=== PATIENT | female | born 1995 | race Caucasian/White ===

== ENCOUNTER 2019-09-01 05:57 | Inpatient (IN) ==
[2019-09-01] MEDS ORDERED: OXYTOCIN/DEXTROSE 5%-WATER 30 UNITS/500 ML BAG IV ONE (07:38)
[2019-09-01] MEDS ORDERED: RINGER'S SOLUTION,LACTATED 1,000 ML IV ONE (08:47)
[2019-09-01] MEDS ORDERED: LIDOCAINE HCL 50 ML VIAL PERI PRN (08:47)
[2019-09-01] MEDS ORDERED: ONDANSETRON 4 MG TAB.RAPDIS PO PRN (08:47)
[2019-09-01] MEDS ORDERED: BUTORPHANOL TARTRATE 2 MG/ML VIAL IV PRN ×2 (08:47)
[2019-09-01] MEDS ORDERED: RINGER'S SOLUTION,LACTATED 1,000 ML IV PRN (08:47)
--- NOTE | 2019-09-01 08:47 | HP ---
Chief Complaint - Chief Complaint Date of Service: 09/01/19 Time of Service: 08:43 Chief Complaint: Labor induction History of Present Illness: 24 year old at 39w 0d who presents to L&D for an elective IOL. She denies vb or lof. Reports irregular ctx. Fetus is active. Medical History (Last Reviewed 09/01/19 @ 08:44 by Juana Bowser MD) Anxiety Onset Date: Unknown Hyperthyroidism Onset Date: ~12/2017 Surgical History: Surgical History (Last Reviewed 09/01/19 @ 08:44 by Juana Bowser MD) No history of previous surgery Family History: Family History (Last Reviewed 09/01/19 @ 08:44 by Juana Bowser MD) Mother Diabetes DMII Hypertension Father Unknown family medical history Grandmother Cancer, Onset Age: 50 maternal grandmother-breast ca Social History: (Last Reviewed 09/01/19 @ 08:44 by Juana Bowser MD) Social History: Marital status: Legally household members: family current occupational status: unemployed current occupational exposures/hazards: No Service: No Tobacco: Smoking Status: Current every day smoker tobacco type: cigarettes Smoking cigarettes per day: 20.0 Smoking packs per day: 1 Alcohol: alcohol intake: former details: none since +UPT Substance Use: substance use type: marijuana Dietary Habits: caffeine: Yes caffeine comment: twice weekly Type: carbonated beverages Review Of Systems (GEN) - Review of Systems Generalized/Overall Review: Present: No Symptoms Reported Misc: All systems neg except as marked Immunizations: IMMUNIZATION HX History of Influenza Vaccine No Hx Pneumococcal Vaccination No Allergies/Adverse Reactions: Allergies Allergy/AdvReac Type Severity Reaction Status Date / Time latex Allergy Other Verified 09/01/19 02:11 Home Medications: HOME MEDICATIONS vitamins no.119-iron fumarate 29 mg-folic acid 1 mg tablet 1 tab PO DAILY #30 tab 05/23/19 [Last Taken Unknown] ferrous sulfate 325 mg (65 mg iron) tablet 325 mg PO DAILY 07/26/19 [Last Taken Unknown] Exam - Exam Constitutional: Present: Alert, Oriented x3, Cooperative, No distress ENT Exam: Present: hearing grossly normal Eye Exam: bilateral eye: normal inspection Back Exam: Present: normal inspection Breasts: Present: Exam deferred Respiratory: Present: lungs clear, normal breath sounds Cardiovascular/Chest: Present: regular rate, rhythm Abdomen: Present: Normal bowel sounds, soft, nontender, nondistended, no rebound tenderness /Rectal: Present: Other - /-1 AROM for clear fluid followed by bloody show Extremity: Present: non-tender, no calf tenderness Skin Exam: Present: normal color, warm/dry, no cyanosis Neurologic: Present: alert, normal mood/affect, oriented x 3 Appearance: Present: appropriate appearance, appropriate insight, neat, no memory impairment Eye contact: Present: cooperative, good eye contact, normal speech Thoughts: Present: normal thought pattern Assessment/Plan - Narrative Narrative: 24 year old at 39w 0d 1. Medical IOL: pitocin for labor induction. AROM done for augmentation 2. GBS negative: prophylaxis not indicated
[2019-09-01 09:45] LABS: Cocaine Ur Negative (NEGATIVE); Urine Barbiturate Negative (NEGATIVE); Urine Benzodiazepines Negative (NEGATIVE); Urine Opiates Negative (NEGATIVE); Urine PCP Negative (NEGATIVE); Urine THC Negative (NEGATIVE)
[2019-09-01] MEDS ORDERED: ONDANSETRON HCL/PF 2 MG/ML VIAL IV PRN (14:25)
[2019-09-01] MEDS ORDERED: NALOXONE HCL 1 MG/1 ML SYRG IV PRN (14:25)
[2019-09-01] MEDS ORDERED: BUPIVACAINE HCL/PF 30 ML VIAL EP SCH (14:30)
[2019-09-01] MEDS ORDERED: BUPIVACAINE HCL/0.9 % NACL/PF 250 ML EP PRN (14:30)
--- NOTE | 2019-09-01 14:47 | ANES ---
Anesthesia Pre Procedure Eval Vitals/Labs: Last Vital Signs Temp 36.6 C 09/01/19 06:00 Pulse 96 09/01/19 06:00 Resp 16 09/01/19 06:00 BP 124/66 09/01/19 06:00 Pulse Ox 97 09/01/19 06:00 HOME MEDICATIONS vitamins no.119-iron fumarate 29 mg-folic acid 1 mg tablet 1 tab PO DAILY #30 tab 05/23/19 [Last Taken Unknown] ferrous sulfate 325 mg (65 mg iron) tablet 325 mg PO DAILY 07/26/19 [Last Taken Unknown] Allergies/Adverse Reactions: Allergies Allergy/AdvReac Type Severity Reaction Status Date / Time latex Allergy Other Verified 09/01/19 02:11 - Planned Procedure Planned Procedure: Labor epidural Medication List Reviewed:: Yes Allergies Verified: Yes Medical History (Last Reviewed 09/01/19 @ 14:47 by Ok Kent CRNA) Anxiety Onset Date: Unknown Hyperthyroidism Onset Date: ~12/2017 Surgical History (Last Reviewed 09/01/19 @ 14:47 by Ok Kent CRNA) No history of previous surgery Family History (Last Reviewed 09/01/19 @ 14:47 by Ok Kent CRNA) Mother Diabetes DMII Hypertension Father Unknown family medical history Grandmother Cancer, Onset Age: 50 maternal grandmother-breast ca - Cardiovascular Tolerate Activity: Good - Anesthesia Assessment and Plan ASA Class: PS, II Anesthesia Type Plan: Epidural
--- NOTE | 2019-09-01 15:08 | ANES ---
Anesthesia Procedure Note Procedure Note: ANESTHESIA PROCEDURE NOTE Date of Procedure: 09/01/2019. Time of procedure: 1445. Performed by: Ok Kent CRNA Sew On Operator: None. Preprocedure diagnosis: Active labor. Post procedure diagnosis: Same. Procedure: Insertion of labor epidural. Indications: The patient is a 24-year-old female in active labor requesting labor epidural for pain management. Findings: See below. Details of the procedure: The patient was placed in a sitting position. DuraPrep as well as Betadine swabs X3 was applied to the patient's back. Patient was then draped in a sterile fashion. Lidocaine 1% was infiltrated to the skin and subcutaneous tissues at the level of the L3-4 interspace. The epidural space was identified using a 18-gauge Tuohy needle with [id number] technique. Epidural catheter was inserted to a depth of 12 centimeters at skin. Negative test dose was elicited using 3 mL of 1.5% preservative-free lidocaine plus epinephrine 1 200,000. The epidural catheter was then taped and secured in place. A loading dose of 8 mL of 0.25% preservative-free bupivacaine was administered to the epidural catheter after negative aspiration for blood and CSF. EBL: Minimal. Fluids: N/A. Specimen: N/A. Post procedure condition: The patient tolerated the procedure well. No complications were noted. Thank you for this consultation. Ok Kent CRNA
--- NOTE | 2019-09-01 15:08 | ANES ---
Post Anesthesia Assessment - Vital Signs Vitals: Last Vital Signs Temp 36.6 C 09/01/19 06:00 Pulse 96 09/01/19 06:00 Resp 16 09/01/19 06:00 BP 124/66 09/01/19 06:00 Pulse Ox 97 09/01/19 06:00 Airway Patency: Normal - Mental Status Level Of Consciousness: Awake - N/V Assessment Nausea/Vomiting Presence: None Dehydration:: No
[2019-09-01] MEDS: RINGER'S SOLUTION,LACTATED 1,000 ML IV PRN ×2 (15:16→23:45)
[2019-09-01] MEDS ORDERED: PENICILLIN G POTASSIUM 5 MILLIONUNT in DEXTROSE 5 % IN WATER 100 ML IV ONE ×4 (22:00→22:45)
[2019-09-02] MEDS ORDERED: HYDROCORTISONE 30 APPL TUBE TP PRN (00:35)
[2019-09-02] MEDS ORDERED: GLYCERIN/WITCH HAZEL LEAF 40 APPL BOX TP PRN (00:35)
[2019-09-02] MEDS ORDERED: HYDROcodone/ACETAMINOPHEN 1 EACH TABLET PO PRN (00:35)
[2019-09-02] MEDS ORDERED: SENNOSIDES 8.6 MG TABLET PO PRN (00:35)
[2019-09-02] MEDS ORDERED: OXYTOCIN/DEXTROSE 5%-WATER 30 UNITS/500 ML BAG IV ONE (00:35)
[2019-09-02] MEDS ORDERED: BENZOCAINE/MENTHOL 81 SPRAY CAN TP PRN (00:35)
[2019-09-02] MEDS ORDERED: BISACODYL 10 MG SUPP.RECT RC PRN (00:35)
[2019-09-02] MEDS ORDERED: diphenhydrAMINE HCL 25 MG CAPSULE PO PRN (00:35)
--- NOTE | 2019-09-02 00:35 | OR ---
Operative Report - Dictated Report Narrative: Date of delivery: 09/02/2019 Time of delivery: 0017 Gender: female APGARS: 99 weight: 3130 grams Procedure: Description of the procedure: The patient is a 24 year old not as previously stated in the chart although the history is questionable. She presented to L&D for an elective IOL at 39 weeks 0 days. She progressed to complete dilation. She delivered a viable female in direct OA presentation over a 1st degree perineal laceration. There was no bleeding and thus the perineal laceration was not repaired. The shoulders delivered without any difficulty followed by the rest of the . Cord clamping was delayed for 60 seconds due to vigorous . The cord was clamped and cut. Cord blood was collected The placenta delivered by expression and appeared intact. EBL: 200 mL Complications: none Specimens: cord blood and cord segment for drug screen due to history of THC use during the History for MU Definition: * The number of deliveries resulting in a live the patient experienced prior to current hospitalization * The previous delivery of live twins or any live multiple gestation is considered one live event. *If primagravida or nulliparous is documented select zero for the number of previous live births. Live Events: 0
[2019-09-02] MEDS: IBUPROFEN 800 MG TABLET PO PRN ×4 (02:15→23:45)
[2019-09-02] MEDS: HYDROcodone/ACETAMINOPHEN 1 EACH TABLET PO PRN ×4 (02:16→23:45)
[2019-09-02] MEDS: DOCUSATE SODIUM 100 MG CAPSULE PO SCH ×2 (09:23→21:07)
[2019-09-03] MEDS: HYDROcodone/ACETAMINOPHEN 1 EACH TABLET PO PRN ×4 (06:44→23:48)
[2019-09-03] MEDS: IBUPROFEN 800 MG TABLET PO PRN ×3 (06:44→19:48)
[2019-09-03] MEDS: DOCUSATE SODIUM 100 MG CAPSULE PO SCH ×3 (06:45→20:46)
--- NOTE | 2019-09-03 08:52 | PN ---
Subjective - Date and Time Seen Date: 09/03/19 Time: 08:50 Subjective Narrative: Patient without complaints Objective Objective Narrative: See vital signs - Review of Systems Generalized/Overall Review: Reports: No Symptoms Reported Misc: All systems neg except as marked - Vitals Vitals: Last Vital Signs Temp 36.4 C 09/03/19 07:38 Pulse 66 09/03/19 07:38 Resp 16 09/03/19 07:38 BP 113/52 09/03/19 07:38 Pulse Ox 99 09/03/19 07:38 - Exam Constitutional: Present: Alert, Oriented x3, Cooperative, No distress Abdomen: Present: soft, nontender, nondistended - fundus is firm Extremity: Present: non-tender, no calf tenderness Skin Exam: Present: normal color, warm/dry, no cyanosis Neurologic: Present: alert, normal mood/affect, oriented x 3 Appearance: Present: appropriate appearance, appropriate insight, neat, no memory impairment Eye contact: Present: cooperative, good eye contact, normal speech Thoughts: Present: normal thought pattern Cauti Physician Documentation - Urinary Catheter Management Urethral (Francois) Urethral Indwelling: No Date of Insertion: 09/01/19 Assessment/Plan Plan Narrative: PPD 1 s/p Doing well Discharge home tomorrow Patient declines contraception
[2019-09-04] MEDS: IBUPROFEN 800 MG TABLET PO PRN ×2 (01:48→09:02)
[2019-09-04 06:46] VITALS: BP 121/68
[2019-09-04] MEDS: DOCUSATE SODIUM 100 MG CAPSULE PO SCH (09:02)
--- NOTE | 2019-09-04 10:32 | PN ---
Subjective - Date and Time Seen Date: 09/04/19 Time: 10:31 Subjective Narrative: Patient without complaints Objective Objective Narrative: See vital signs - Review of Systems Generalized/Overall Review: Reports: No Symptoms Reported Misc: All systems neg except as marked - Vitals Vitals: Last Vital Signs Temp 36.5 C 09/04/19 06:41 Pulse 72 09/04/19 06:41 Resp 16 09/04/19 06:41 BP 121/68 09/04/19 06:41 Pulse Ox 99 09/04/19 06:41 - Exam Constitutional: Present: Alert, Oriented x3, Cooperative, No distress Abdomen: Present: soft, nontender, nondistended - fundus is firm Extremity: Present: non-tender, no calf tenderness Skin Exam: Present: normal color, warm/dry, no cyanosis Neurologic: Present: alert, normal mood/affect, oriented x 3 Appearance: Present: appropriate appearance, appropriate insight, neat, no memory impairment Eye contact: Present: cooperative, good eye contact, normal speech Thoughts: Present: normal thought pattern Cauti Physician Documentation - Urinary Catheter Management Urethral (Francois) Urethral Indwelling: No Date of Insertion: 09/01/19 Assessment/Plan Plan Narrative: PPD 2 s/p Doing well Discharge today Detailed discharge instructions reviewed with the patient Follow-up in 6 weeks or sooner for any other concerns
== END 2019-09-04 11:30 | disposition home or self-care (01) | DRG 807 ==
LOC: OB 05:57
PROVIDERS: ADMIT Obstetrics & Gynecology; ATTEND Obstetrics & Gynecology
CPT/HCPCS: 59025; 80307; 86850